=== PATIENT | female | born 1935 | race Caucasian/White ===

== ENCOUNTER 2016-06-30 09:07 | Inpatient (IN) ==
--- NOTE | 2016-06-30 09:43 | Emergency Department Note ---
Disposition Clinical Impression: Community acquired pneumonia, Weakness, Confusion, Hypokalemia Disposition: Admitted As Inpatient Referrals: Tae Pascal DO [Primary Care Provider] - Forms: ED Satisfaction Letter General Adult HPI - General Chief complaint: ED Shortness of Breath/Dyspnea Stated complaint: Lethargic/dehydrated/Nausea Time Seen by Provider: 06/30/16 09:42 Source: patient, family Limitations: no limitations - History of Present Illness HPI Narrative: 80-year-old female reports emergency department with her female relative. The patient usually lives at home. There is concern that the patient is becoming dehydrated, she has had some nausea and slight midepigastric discomfort. She has a history of reflux. There is no history of vomiting bloody material or bloody or black stool. She denies any chest pain or shortness of breath but has had a cough and a runny nose. There is no history of fall or injury no trouble walking talking hearing seeing or speaking and no weakness or numbness in the arms or legs or confusion. There is no history of headache neck stiffness rash or fever. The patient has felt generally weak since Tuesday. There is no history of back pain or urinary symptoms. She is not known to be diabetic and denies any heart problems. Essentially the patient feels weaker than usual, she has had upper respiratory symptoms and some slight midepigastric discomfort associated with nausea. Pain Scale: 0 - Related Data Allergies Allergy/AdvReac Type Severity Reaction Status Date / Time LILI Inhibitors Allergy Anaphylaxis Verified 06/30/16 09:17 All systems ED: reviewed and negative except as stated. Past Medical History - Past Medical History Medical history: Reports: GERD, hypertension Psychiatric history: Reports: no psych history - Social History Smoking Status: Never smoker Smokeless Tobacco Status: No Alcohol use: Reports: none Drug use: Reports: none Physical Exam - General Limitations: no limitations General appearance: alert, in no apparent distress, other (The patient is alert and follows commands properly, she is able to sit up on command without difficulty and does not get dizzy with this maneuver. There is no hesitation with following commands or sitting upright on the bed.) - Head Head exam: atraumatic, normocephalic, normal inspection - Eye Eye exam: Present: normal appearance, PERRL, EOMI - ENT ENT exam: normal exam, normal oropharynx, mucous membranes moist, TM's normal bilaterally, normal external ear exam - Neck Neck exam: Present: normal inspection, full ROM, trachea midline - Chest Chest inspection: Present: symmetric chest wall rise. Absent: tenderness - Respiratory Respiratory exam: Present: normal lung sounds bilaterally. Absent: respiratory distress - Cardiovascular Cardiovascular exam: Present: regular rate, normal rhythm, normal heart sounds - Abdominal Exam Abdominal exam: Present: soft, Non-Tender. Absent: tenderness, distention, guarding, rebound, rigidity, pulsatile mass - Extremities Exam Extremities exam: Present: normal inspection, full ROM, normal capillary refill. Absent: tenderness, pedal edema, joint swelling, calf tenderness - Expanded Lower Extremity Exam Lower leg exam: Absent: Homans' sign Neurovascular/Tendon exam: Absent: pulse deficit, motor deficit, sensory deficit , tendon deficit, extremity cold to touch - Back Exam Back exam: Present: normal inspection, full ROM. Absent: tenderness, CVA tenderness (R), CVA tenderness (L), vertebral tenderness - Neurological Exam Neurological exam: Present: alert, oriented X3, CN II-XII intact. Absent: motor sensory deficit, reflexes normal - Psychiatric Psychiatric exam: Present: normal affect, normal mood - Skin Skin exam: Present: warm, dry, intact, normal color. Absent: rash, cyanosis, diaphoresis, erythema, pallor, mottled Course Vital Signs Temperature 98.8 F 06/30/16 09:12 Pulse Rate 80 06/30/16 09:12 Respiratory Rate 18 06/30/16 09:12 Blood Pressure 134/80 06/30/16 09:12 O2 Sat by Pulse Oximetry 94 L 06/30/16 09:12 Temperature 98.8 F 06/30/16 09:12 Pulse Rate 70 06/30/16 10:33 Respiratory Rate 14 06/30/16 10:33 Blood Pressure 142/79 06/30/16 10:33 O2 Sat by Pulse Oximetry 94 L 06/30/16 10:33 Oxygen Delivery Oxygen Delivery Room Air Medical Decision Making - MDM Narrative Medical decision making narrative: The patient's caregiver came to the ED, her granddaughter, she reports the patient is unable to get out of bed, not taking foods or fluids, she has been somewhat confused as well. The patient was taken to urgent care last night and treated, she has not improved. We noticed the patient's oxygen levels in the 92 % range, she was given oxygen in the ED. Her potassium is 2.6 IV potassium with fluids were ordered. The patient appears to have pneumonia. She has an elevated CRP and white count she is frail and elderly. Based on the patient's history of poor ambulation, decreased by mouth intake, hypokalemia, pneumonitis , decreased oxygen saturations, frail elderly state, and apparent reports of confusion, I thought the patient would be best admitted to the hospital. The family does not feel the patient is well enough to go home. The patient is currently stable. I reviewed the case with the hospitalist on-call. - Lab Data Lab results reviewed: Yes I reviewed the patient's lab results. Result diagrams: 06/30/16 10:33 06/30/16 10:33 Lab Results 06/30/16 06/30/16 06/30/16 Range/Units 10:33 10:33 10:33 WBC 19.8 H (4.3-11.1) K/mcL RBC 4.33 (3.82-4.97) M/mcL Hgb 11.9 (11.5-15.4) g/dL Hct 34.6 L (35.3-44.9) % MCV 79.9 L (83.0-100.0) fL MCH 27.5 L (28.0-33.3) pg MCHC 34.4 (31.6-35.5) g/dL RDW 14.0 (11.5-14.5) % Plt Count 318 (140-400) K/mcL MPV 8.1 L (9.4-12.4) fL Immature Gran % 0.6 (0-4) % Seg Neutrophils % 91.5 % Lymphocytes % 1.9 % Monocytes % 5.9 % Eosinophils % 0.0 % Basophils % 0.1 % Neutrophils # 18.2 H (1.6-8.9) K/mcL Lymphocytes # 0.4 L (0.6-4.6) K/mcL Monocytes # 1.2 (0.0-1.3) K/mcL Eosinophils # 0.0 (0.0-0.6) K/mcL Basophils # 0.0 (0.0-0.2) K/mcL Sodium 124 L (136-145) mEq/L Potassium 2.6 L (3.5-4.5) mEq/L Chloride 83 L (98-109) mEq/L Carbon Dioxide 23 (19-29) mEq/L BUN 13 (7-20) mg/dL Creatinine 0.73 (0.57-1.11) mg/dL Est GFR ( Amer) > 60 (> 60) Est GFR (Non-Af Amer) > 60 (> 60) BUN/Creatinine Ratio 18 (6-26) Glucose 150 H (70-99) mg/dL Calculated Osmolality 261 L (280-300) Lactic Acid 2.0 (0.5-2.2) mmol/L Calcium 9.0 (8.6-10.8) mg/dL Total Bilirubin (0.2-1.2) mg/dL Direct Bilirubin (0.0-0.5) mg/dL Indirect Bilirubin (0.0-1.2) mg/dL AST (5-34) Units/L ALT (0-55) Units/L Alkaline Phosphatase (38-126) Units/L Creatine Kinase 383 H (29-168) Units/L Troponin I (0-0.03) ng/mL C-Reactive Protein (Less than 5) mg/L Serum Total Protein (6.0-8.3) g/dL Albumin (3.5-5.0) g/dL Globulin (2.4-3.5) g/dL Albumin/Globulin Ratio (1.1-2.2) Lipase (8-78) Units/L Urine Color (Yellow) Urine Clarity (Clear) Urine pH (5.0-8.0) pH Units Ur Specific [place] (1.010-1.025) Urine Protein (Neg-Trace) mg/dL Urine Glucose (UA) (Normal) mg/dL Urine Ketones (Negative) mg/dL Urine Blood (Negative) Urine Nitrite (Negative) Urine Bilirubin (Negative) Urine Urobilinogen (Normal) mg/dL Ur Leukocyte Esterase (Negative) Urine Microscopic RBC (0-3) per hpf Urine Microscopic WBC (0-3) per hpf Ur Squamous Epith Cells (None-Few) per lpf Urine Bacteria (None-Few) per hpf Hyaline Casts (None-Few) per lpf Ur Culture Indicated? (NO) 06/30/16 06/30/16 06/30/16 Range/Units 10:33 10:33 11:10 WBC (4.3-11.1) K/mcL RBC (3.82-4.97) M/mcL Hgb (11.5-15.4) g/dL Hct (35.3-44.9) % MCV (83.0-100.0) fL MCH (28.0-33.3) pg MCHC (31.6-35.5) g/dL RDW (11.5-14.5) % Plt Count (140-400) K/mcL MPV (9.4-12.4) fL Immature Gran % (0-4) % Seg Neutrophils % % Lymphocytes % % Monocytes % % Eosinophils % % Basophils % % Neutrophils # (1.6-8.9) K/mcL Lymphocytes # (0.6-4.6) K/mcL Monocytes # (0.0-1.3) K/mcL Eosinophils # (0.0-0.6) K/mcL Basophils # (0.0-0.2) K/mcL Sodium (136-145) mEq/L Potassium (3.5-4.5) mEq/L Chloride (98-109) mEq/L Carbon Dioxide (19-29) mEq/L BUN (7-20) mg/dL Creatinine (0.57-1.11) mg/dL Est GFR ( Amer) (> 60) Est GFR (Non-Af Amer) (> 60) BUN/Creatinine Ratio (6-26) Glucose (70-99) mg/dL Calculated Osmolality (280-300) Lactic Acid (0.5-2.2) mmol/L Calcium (8.6-10.8) mg/dL Total Bilirubin 0.7 (0.2-1.2) mg/dL Direct Bilirubin 0.3 (0.0-0.5) mg/dL Indirect Bilirubin 0.4 (0.0-1.2) mg/dL AST 36 H (5-34) Units/L ALT 21 (0-55) Units/L Alkaline Phosphatase 152 H (38-126) Units/L Creatine Kinase (29-168) Units/L Troponin I 0.02 (0-0.03) ng/mL C-Reactive Protein 64 H (Less than 5) mg/L Serum Total Protein 7.7 (6.0-8.3) g/dL Albumin 4.0 (3.5-5.0) g/dL Globulin 3.7 H (2.4-3.5) g/dL Albumin/Globulin Ratio 1.1 (1.1-2.2) Lipase 23 (8-78) Units/L Urine Color Yellow (Yellow) Urine Clarity Cloudy A (Clear) Urine pH 6.5 (5.0-8.0) pH Units Ur Specific [place] 1.020 (1.010-1.025) Urine Protein 30 H (Neg-Trace) mg/dL Urine Glucose (UA) Normal (Normal) mg/dL Urine Ketones 40 H (Negative) mg/dL Urine Blood Negative (Negative) Urine Nitrite Negative (Negative) Urine Bilirubin Negative (Negative) Urine Urobilinogen Normal (Normal) mg/dL Ur Leukocyte Esterase Negative (Negative) Urine Microscopic RBC 0-3 (0-3) per hpf Urine Microscopic WBC 0-3 (0-3) per hpf Ur Squamous Epith Cells Many H (None-Few) per lpf Urine Bacteria Moderate H (None-Few) per hpf Hyaline Casts None Seen (None-Few) per lpf Ur Culture Indicated? NO (NO) - Radiology Data Radiology results reviewed: Yes I reviewed the patient's radiology results.
[2016-06-30 10:46] LABS: Basophils % 0.1 %; Hematocrit 34.6 % (35.3-44.9); Hemoglobin 11.9 g/dL (11.5-15.4); Immature Granulocytes % 0.6 % (0-4); Lymphocytes # 0.4 K/mcL (0.6-4.6); Lymphocytes % 1.9 %; Mean Corpuscular HGB Conc 34.4 g/dL (31.6-35.5); Mean Corpuscular Hemoglobin 27.5 pg (28.0-33.3); Mean Corpuscular Volume 79.9 fL (83.0-100.0); Mean Platelet Volume 8.1 fL (9.4-12.4); Monocytes # 1.2 K/mcL (0.0-1.3); Monocytes % 5.9 %; Neutrophils # 18.2 K/mcL (1.6-8.9); Platelet Count 318 K/mcL (140-400); Red Blood Count 4.33 M/mcL (3.82-4.97); Segmented Neutrophils % 91.5 %
[2016-06-30 11:03] LABS: Albumin/Globulin Ratio 1.1 (1.1-2.2); Bilirubin,Direct 0.3 mg/dL (0.0-0.5); Bilirubin,Indirect 0.4 mg/dL (0.0-1.2); Bilirubin,Total 0.7 mg/dL (0.2-1.2); Globulin 3.7 g/dL (2.4-3.5); Total Protein 7.7 g/dL (6.0-8.3)
[2016-06-30 11:04] LABS: BUN/Creatinine Ratio 18 (6-26); Blood Urea Nitrogen 13 mg/dL (7-20); Carbon Dioxide 23 mEq/L (19-29); Chloride 83 mEq/L (98-109); Creatine Kinase 383 Units/L (29-168); Glucose 150 mg/dL (70-99); Osmolality,Calculated 261 (280-300); Potassium 2.6 mEq/L (3.5-4.5); Sodium 124 mEq/L (136-145); eGFR For African Americans > 60 (> 60); eGFR For Non-African Americans > 60 (> 60)
[2016-06-30 11:20] LABS: Bilirubin,Urine Negative (Negative); Blood,Urine Negative (Negative); Clarity,Urine Cloudy (Clear); Color,Urine Yellow (Yellow); Glucose,Urine (UA) Normal (Normal); Ketones,Urine 40 mg/dL (Negative); Leukocyte Esterase,Urine Negative (Negative); Nitrite,Urine Negative (Negative); PH,Urine 6.5 pH Units (5.0-8.0); Protein,Urine 30 mg/dL (Neg-Trace); Urobilinogen,Urine Normal (Normal)
[2016-06-30 11:23] LABS: Bacteria,Urine Moderate per hpf (None-Few); Hyaline Casts,Urine None Seen per lpf (None-Few); RBC,Urine 0-3 per hpf (0-3); Squamous Epithelial Cell,Urine Many per lpf (None-Few); WBC,Urine 0-3 per hpf (0-3)
[2016-06-30] MEDS ORDERED: 0.9 % Sodium Chloride 1,000 ML IVC ONE (12:04)
[2016-06-30] MEDS: Levofloxacin 750 MG/150 ML 750 MG/150 ML BAG IVPB SCH (12:18)
[2016-06-30] MEDS ORDERED: Naloxone 0.4 MG/ML INJ IVP PRN (12:30)
[2016-06-30 12:43] LABS: Magnesium 1.5 mg/dL (1.6-2.6)
[2016-06-30] MEDS ORDERED: Magnesium Sulfate 1 GM in D5% in Water 100 ML IVPB STA (13:32)
[2016-06-30] MEDS ORDERED: 0.9 % Sodium Chloride 1,000 ML IVC SCH (13:45)
--- NOTE | 2016-06-30 14:09 | Internal Med History&Physical ---
Date of Encounter: 06/30/16 Time of Encounter: 14:05 Assessment and Plan (1) Acute metabolic encephalopathy Current visit: Yes Status: Acute Secondary to acute hyponatremia and pneumonia. Family reports the patient is very slow to answer questions but that is her baseline area. She is fully independent and lives with her granddaughter. Improved after IV fluids. Treat underlying etiology. (2) Dehydration Current visit: Yes Status: Acute Secondary to poor oral intake and infection. Continue gentle hydration with IV fluids. (3) Community acquired pneumonia Current visit: Yes Status: Acute Chest x-ray revealed left lower airspace opacity. Continue IV Levaquin. (4) Acute hyponatremia Current visit: Yes Status: Acute NA on Admission was 124. Received 1 L of IV fluids in the ER. Continue normal saline at a slow rate to avoid rapid correction. Repeat BMP at 6 PM. (5) Hypokalemia Current visit: Yes Status: Acute K 2.6. EKG shows SR, no acute changes. replete (6) Weakness Current visit: Yes Status: Acute Multifactorial from dehydration and infection. Plan as above. (7) HTN (hypertension) Current visit: No Status: Chronic Blood pressure well controlled without medications. Qualifiers: Hypertension type: essential hypertension Qualified Code(s): I10 - Essential (primary) hypertension (8) GERD (gastroesophageal reflux disease) Current visit: No Status: Chronic Patient has history of severe GERD. She takes Prevacid at home. Given her poor oral intake, I will start Protonix IV. Qualifiers: Esophagitis presence: esophagitis presence not specified Qualified Code(s) : K21.9 - Gastro-esophageal reflux disease without esophagitis (9) Cognitive changes Current visit: No Status: Chronic Family reports the patient is very slow to answer questions but that is her baseline area. She is fully independent and lives with her granddaughter. Internal Medicine - H&P: HPI Chief complaint: Generalized weakness and productive cough for the past 4 days. Admitted From: Home Plans for Post Hospital Care: Home History of present illness: Ms. Long is a 80 year old female with past medical history of GERD and HTN who is mildly confused but able to answer all questions. Her granddaughter lives with her and is at bedside. Last Tuesday, she developed sore throat followed by productive cough of yellowish sputum and chills. No fever. No chest pain. No hemoptysis. no diarrhea. no urinary complaints. no bleeding. no abdominal pain. Granddaughter and daughter has Strep A pharyngitis 2 weeks ago. Our ED, patient was very confused and sleepy. She received 1 L of IV fluid and was started on IV potassium. Past Med Surg Social Fam HX - Past Medical History Medical history: GERD, hypertension Psychiatric history: no psych history - Past Surgical History Surgical History: hip replacement, hysterectomy - Social History Smoking Status: Never smoker Smokeless Tobacco Status: No Alcohol use: none Drug use: none - Family History Mother Hx Family Endocrine Disorder: Yes (dm) Internal Medicine - H&P: Meds Allergies LILI Inhibitors Allergy (Verified 06/30/16 09:17) Anaphylaxis All Systems PM: A 10-system review of systems was performed and is negative for pertinent findings except as documented above in the HPI. - Constitutional Vitals: Temp Pulse Resp BP Pulse Ox 98.8 F 71 18 139/84 93 L 06/30/16 09:12 06/30/16 12:12 06/30/16 12:43 06/30/16 12:43 06/30/16 12:12 General appearance: Present: cooperative, A&O X 3, pleasant, no acute distress, answers questions appropriately - Eye Eye exam: Present: PERRL. Absent: sclera anicteric - ENT ENT exam: Present: mucous membranes dry - Neck Neck exam general surgery: Present: supple, trachea midline. Absent: lymphadenopathy - Respiratory Respiratory exam: Present: rales (at left lung base) - Cardiovascular Cardiovascular exam: Present: RRR - GI/Abdominal GI/Abdominal exam: Present: normal bowel sounds. Absent: distended, soft, tenderness - Extremities Exam Extremities exam: Present: radial pulses palpable and symetrical. Absent: joint swelling, pedal edema, tenderness - Neurological Exam Neurological exam: Present: alert, no focal deficits. Absent: facial droop, speech deficit - Skin Skin exam: Present: dry, normal color. Absent: erythema, rash Internal Med - H&P Results - Labs CBC & Chem 7: 06/30/16 10:33 06/30/16 10:33
[2016-06-30] MEDS: 0.9 % Sodium Chloride 1,000 ML IVC SCH (14:45)
[2016-06-30] MEDS: Pantoprazole 40 MG VIAL IVP SCH (14:59)
[2016-06-30] MEDS: Acetaminophen 325 MG TABLET PO PRN (15:58)
[2016-06-30] MEDS: Ondansetron 4 MG/2 ML VIAL IVP PRN (15:58)
[2016-06-30] MEDS ORDERED: Potassium Chloride 40 MEQ, Lidocaine 1% 2 ML in D5% in Water 500 ML IVPB ONE (16:00)
[2016-06-30 19:34] LABS: BUN/Creatinine Ratio 17 (6-26); Blood Urea Nitrogen 12 mg/dL (7-20); Calcium 8.2 mg/dL (8.6-10.8); Carbon Dioxide 21 mEq/L (19-29); Chloride 88 mEq/L (98-109); Glucose 155 mg/dL (70-99); Osmolality,Calculated 257 (280-300); Potassium 3.3 mEq/L (3.5-4.5); Sodium 122 mEq/L (136-145); eGFR For African Americans > 60 (> 60); eGFR For Non-African Americans > 60 (> 60)
[2016-07-01] MEDS: Ondansetron 4 MG/2 ML VIAL IVP PRN ×3 (00:57→20:22)
[2016-07-01 05:02] LABS: Basophils % 0.1 %; Hematocrit 28.6 % (35.3-44.9); Immature Granulocytes % 0.7 % (0-4); Lymphocytes # 0.6 K/mcL (0.6-4.6); Lymphocytes % 4.1 %; Mean Corpuscular HGB Conc 33.2 g/dL (31.6-35.5); Mean Corpuscular Hemoglobin 26.9 pg (28.0-33.3); Mean Platelet Volume 8.2 fL (9.4-12.4); Monocytes # 0.7 K/mcL (0.0-1.3); Monocytes % 5.2 %; Neutrophils # 12.4 K/mcL (1.6-8.9); Platelet Count 245 K/mcL (140-400); Red Blood Count 3.53 M/mcL (3.82-4.97); Red Cell Distribution Width 14.5 % (11.5-14.5); Segmented Neutrophils % 89.9 %
[2016-07-01 05:03] LABS: Hemoglobin 9.5 g/dL (11.5-15.4)
[2016-07-01 05:18] LABS: BUN/Creatinine Ratio 16 (6-26); Blood Urea Nitrogen 10 mg/dL (7-20); Carbon Dioxide 23 mEq/L (19-29); Chloride 91 mEq/L (98-109); Glucose 122 mg/dL (70-99); Magnesium 1.5 mg/dL (1.6-2.6); Osmolality,Calculated 258 (280-300); Phosphorous 2.1 mg/dL (2.3-4.7); Potassium 2.6 mEq/L (3.5-4.5); Sodium 124 mEq/L (136-145); eGFR For African Americans > 60 (> 60); eGFR For Non-African Americans > 60 (> 60)
[2016-07-01] MEDS ORDERED: Potassium Chloride 40 MEQ, Lidocaine 1% 2 ML in D5% in Water 500 ML IVPB STA (06:01)
[2016-07-01] MEDS ORDERED: Potassium Chloride Elixir 20 MEQ/15 ML UDC PO ONE (06:02)
[2016-07-01] MEDS: Pantoprazole 40 MG VIAL IVP SCH (09:38)
[2016-07-01] MEDS: Levofloxacin 750 MG/150 ML 750 MG/150 ML BAG IVPB SCH (09:39)
[2016-07-01] MEDS: 0.9 % Sodium Chloride 1,000 ML IVC SCH (09:43)
--- NOTE | 2016-07-01 09:52 | Internal Med Progress Note ---
<Rod Peña - Last Filed: 07/01/16 16:50> Date of Encounter: 07/01/16 Time of Encounter: 09:52 - Assessment and plan (1) Community acquired pneumonia Current Visit: Yes Status: Acute Assessment and plan: Chest x-ray and symptoms correlate with pneumonia picture, con't monotherapy with levaquin IV, urine legionella and pneumococcal antigens negative. (2) Hyponatremia Current Visit: Yes Status: Acute Assessment and plan: Pt is euvolemic, low serum osmolality, with concurrent pneumonia, SIADH can be a consideration, not much of improvement with NS IV, will stop it and will try fluid restriction, recheck in AM. (3) Hypokalemia Current Visit: Yes Status: Acute Assessment and plan: Replaced, log mag replaced as well. Recheck in AM. (4) Hypomagnesemia Current Visit: Yes Status: Acute Assessment and plan: Replaced, recheck in AM. (5) Weakness Current Visit: Yes Status: Acute Assessment and plan: PT/OT to evaluate him. (6) DVT prophylaxis Current Visit: Yes Status: Acute Assessment and plan: Heparin SQ. - Subjective Interval history: Pt seen and examined, states that he does noticed productive cough recently, feels better that yesterday. - Constitutional Vitals: Temp Pulse Resp BP Pulse Ox 98.4 F 82 18 135/85 93 L 07/01/16 07:11 07/01/16 07:11 07/01/16 07:11 07/01/16 07:11 07/01/16 07:11 General appearance: Present: cooperative, A&O X 3, pleasant, no acute distress, answers questions appropriately - Head Head exam: Present: atraumatic, normocephalic - Eye Eye exam: Present: PERRL, conjuntiva pink, sclera anicteric Pupils: Present: PERRL - Neck Neck exam general surgery: Present: supple, trachea midline. Absent: lymphadenopathy - Respiratory Respiratory exam: Present: rhonchi (at base b/l). Absent: accessory muscle use , rales, wheezes - Cardiovascular Cardiovascular exam: Present: RRR, +S1, +S2. Absent: diastolic murmur, gallop, rubs, systolic murmur - GI/Abdominal GI/Abdominal exam: Present: normal bowel sounds, soft, no peritoneal signs. Absent: distended, tenderness - Extremities Exam Extremities exam: Present: warm, radial pulses palpable and symetrical. Absent : calf tenderness, cyanotic, pedal edema - Neurological Exam Neurological exam: Present: CN II-XII intact, oriented X3, no focal deficits. Absent: pronater drift, facial droop, speech deficit - Skin Skin exam: Present: dry, intact Internal Medicine: Result - Labs CBC & Chem 7: 07/01/16 04:50 07/01/16 12:17 Labs: Short CBC 07/01/16 Range/Units 04:50 WBC 13.8 H (4.3-11.1) K/mcL Hgb 9.5 L D (11.5-15.4) g/dL Hct 28.6 L (35.3-44.9) % Plt Count 245 (140-400) K/mcL Neutrophils # 12.4 H (1.6-8.9) K/mcL BMP 06/30/16 07/01/16 19:10 04:50 Sodium 122 L 124 L Potassium 3.3 L 2.6 L Chloride 88 L 91 L Carbon Dioxide 21 23 BUN 12 10 Creatinine 0.71 0.61 Glucose 155 H 122 H Calcium 8.2 L 8.0 L Consult Discharge Plan - Plan Referrals: Tae Pascal DO [Primary Care Provider] - 07/07/16 9:30 am <James Hardy - Last Filed: 07/01/16 17:25> Date of Encounter: 07/01/16 - Constitutional Vitals: Temp Pulse Resp BP Pulse Ox 98.3 F 76 16 148/80 93 L 07/01/16 16:05 07/01/16 16:05 07/01/16 16:05 07/01/16 16:05 07/01/16 16:05 Internal Medicine: Result - Labs CBC & Chem 7: 07/01/16 04:50 07/01/16 12:17 Labs: Short CBC 07/01/16 Range/Units 04:50 WBC 13.8 H (4.3-11.1) K/mcL Hgb 9.5 L D (11.5-15.4) g/dL Hct 28.6 L (35.3-44.9) % Plt Count 245 (140-400) K/mcL Neutrophils # 12.4 H (1.6-8.9) K/mcL BMP 06/30/16 07/01/16 07/01/16 19:10 04:50 12:17 Sodium 122 L 124 L 122 L Potassium 3.3 L 2.6 L 3.6 D Chloride 88 L 91 L 92 L Carbon Dioxide 21 23 20 BUN 12 10 9 Creatinine 0.71 0.61 0.60 Glucose 155 H 122 H 116 H Calcium 8.2 L 8.0 L 8.1 L 07/01/16 12:17 Sodium Potassium 3.6 Chloride Carbon Dioxide BUN Creatinine Glucose Calcium - Attending Attestation I examined this patient and my medical decision-making was reviewed with the RECRUITMENT DIRECTOR/PA/Advanced Practice Nurse/Resident Physician. I agree with the documented findings, disposition and treatment plan as described except to the extent set forth below. Agree with Dr. Chaudhari note. PNA with multiple electrolyte imbalances. Likely SIADH, fluid restrtion. D/C ivfluids. Will supplement electrolytes, continue with antibiotics for PNA. D/W patient and her family.
--- NOTE | 2016-07-01 11:22 | Electrocardiograph Report ---
[facility] Test Date: 2016-06-30 Pat Name: Gena Long Department: 104 Room: 3A33 Gender: F Broom Maker: : [id number] Requested By: Duarte Steele Order Number: [id number] Reading MD: Ayden Horton MD Measurements Intervals [place] Rate: 74 P: 91 MD: 172 QRS: -58 QRSD: 154 T: -31 QT: 378 QTc: 405 Interpretive Statements SINUS RHYTHM RIGHT BUNDLE BRANCH BLOCK LEFT ANTERIOR FASCICULAR BLOCK Electronically Signed On 07-01-2016 11:20:48 EST by Ayden Horton MD
[2016-07-01] MEDS: Magnesium Oxide 400 MG TABLET PO SCH ×2 (12:24→20:12)
[2016-07-01 12:39] LABS: BUN/Creatinine Ratio 15 (6-26); Blood Urea Nitrogen 9 mg/dL (7-20); Calcium 8.1 mg/dL (8.6-10.8); Carbon Dioxide 20 mEq/L (19-29); Chloride 92 mEq/L (98-109); Glucose 116 mg/dL (70-99); Osmolality,Calculated 254 (280-300); Potassium 3.6 mEq/L (3.5-4.5); Sodium 122 mEq/L (136-145); eGFR For African Americans > 60 (> 60); eGFR For Non-African Americans > 60 (> 60)
[2016-07-01] MEDS: *HR* Heparin 5,000 UNIT/ML VIAL SQ SCH (18:26)
[2016-07-01] MEDS: Acetaminophen 325 MG TABLET PO PRN (20:12)
[2016-07-02 05:22] LABS: Basophils % 0.3 %; Hemoglobin 9.9 g/dL (11.5-15.4); Immature Granulocytes % 0.9 % (0-4); Lymphocytes # 1.1 K/mcL (0.6-4.6); Lymphocytes % 13.9 %; Mean Corpuscular Volume 81.7 fL (83.0-100.0); Mean Platelet Volume 8.6 fL (9.4-12.4); Monocytes # 0.7 K/mcL (0.0-1.3); Monocytes % 8.4 %; Platelet Count 259 K/mcL (140-400); Red Blood Count 3.67 M/mcL (3.82-4.97); Red Cell Distribution Width 14.6 % (11.5-14.5); Segmented Neutrophils % 76.5 %
[2016-07-02 05:48] LABS: BUN/Creatinine Ratio 12 (6-26); Blood Urea Nitrogen 7 mg/dL (7-20); Calcium 8.2 mg/dL (8.6-10.8); Carbon Dioxide 23 mEq/L (19-29); Chloride 94 mEq/L (98-109); Glucose 113 mg/dL (70-99); Magnesium 1.5 mg/dL (1.6-2.6); Osmolality,Calculated 263 (280-300); Potassium 2.8 mEq/L (3.5-4.5); Sodium 127 mEq/L (136-145); eGFR For African Americans > 60 (> 60); eGFR For Non-African Americans > 60 (> 60)
[2016-07-02] MEDS: *HR* Heparin 5,000 UNIT/ML VIAL SQ SCH ×2 (06:16→18:10)
[2016-07-02] MEDS: Magnesium Oxide 400 MG TABLET PO SCH ×2 (08:40→20:31)
[2016-07-02] MEDS: Levofloxacin 750 MG/150 ML 750 MG/150 ML BAG IVPB SCH (08:41)
[2016-07-02] MEDS: Pantoprazole 40 MG VIAL IVP SCH (08:41)
[2016-07-02] MEDS ORDERED: Magnesium Sulfate 2 GM in D5% in Water 100 ML IVPB ONE (10:17)
--- NOTE | 2016-07-02 10:19 | Internal Med Progress Note ---
<Rod Peña - Last Filed: 07/02/16 15:37> Date of Encounter: 07/02/16 Time of Encounter: 10:19 - Assessment and plan (1) Community acquired pneumonia Current Visit: Yes Status: Acute Assessment and plan: Chest x-ray and symptoms correlate with pneumonia picture, con't monotherapy with levaquin IV, urine legionella and pneumococcal antigens negative. (2) Hyponatremia Current Visit: Yes Status: Acute Assessment and plan: Pt is euvolemic, low serum osmolality, with concurrent pneumonia, SIADH can be a consideration, not much of improvement with NS IV, after stopping the fluid with fluid restriction, sodium counts improved. Recheck in AM. (3) Hypokalemia Current Visit: Yes Status: Acute Assessment and plan: Replaced, low mag replaced as well. Recheck in AM. (4) Hypomagnesemia Current Visit: Yes Status: Acute Assessment and plan: Replaced, recheck in AM. (5) Weakness Current Visit: Yes Status: Acute Assessment and plan: PT/OT recommended HH with pt/ot. (6) DVT prophylaxis Current Visit: Yes Status: Acute Assessment and plan: Heparin SQ. - Subjective Interval history: Pt seen and examined, states that she feels better than yesterday, still low appetite. - Constitutional Vitals: Temp Pulse Resp BP Pulse Ox 97.9 F 79 16 128/80 95 07/02/16 07:25 07/02/16 07:25 07/02/16 07:25 07/02/16 07:25 07/02/16 08:29 General appearance: Present: cooperative, A&O X 3, pleasant, no acute distress, answers questions appropriately - Head Head exam: Present: atraumatic, normocephalic - Eye Eye exam: Present: PERRL, conjuntiva pink, sclera anicteric Pupils: Present: PERRL - Neck Neck exam general surgery: Present: supple, trachea midline. Absent: lymphadenopathy - Respiratory Respiratory exam: Present: CTAB. Absent: accessory muscle use, rales, rhonchi, wheezes - Cardiovascular Cardiovascular exam: Present: RRR, +S1, +S2. Absent: diastolic murmur, gallop, rubs, systolic murmur - GI/Abdominal GI/Abdominal exam: Present: normal bowel sounds, soft, no peritoneal signs. Absent: distended, tenderness - Extremities Exam Extremities exam: Present: warm, radial pulses palpable and symetrical. Absent : calf tenderness, cyanotic, pedal edema - Neurological Exam Neurological exam: Present: CN II-XII intact, oriented X3, no focal deficits. Absent: pronater drift, facial droop, speech deficit - Skin Skin exam: Present: dry, intact Internal Medicine: Result - Labs CBC & Chem 7: 07/02/16 04:22 07/02/16 04:22 Labs: Short CBC 07/02/16 Range/Units 04:22 WBC 7.9 (4.3-11.1) K/mcL Hgb 9.9 L (11.5-15.4) g/dL Hct 30.0 L (35.3-44.9) % Plt Count 259 (140-400) K/mcL Neutrophils # 6.0 (1.6-8.9) K/mcL BMP 07/01/16 07/01/16 07/02/16 12:17 12:17 04:22 Sodium 122 L 127 L Potassium 3.6 D 3.6 2.8 L Chloride 92 L 94 L Carbon Dioxide 20 23 BUN 9 7 Creatinine 0.60 0.60 Glucose 116 H 113 H Calcium 8.1 L 8.2 L Consult Discharge Plan - Plan Referrals: Tae Pascal DO [Primary Care Provider] - 07/07/16 9:30 am <James Hardy - Last Filed: 07/02/16 15:58> Date of Encounter: 07/02/16 - Constitutional Vitals: Temp Pulse Resp BP Pulse Ox 97.7 F 77 18 124/78 95 07/02/16 15:07 07/02/16 15:07 07/02/16 15:07 07/02/16 15:07 07/02/16 15:07 Internal Medicine: Result - Labs CBC & Chem 7: 07/02/16 04:22 07/02/16 04:22 Labs: Short CBC 07/02/16 Range/Units 04:22 WBC 7.9 (4.3-11.1) K/mcL Hgb 9.9 L (11.5-15.4) g/dL Hct 30.0 L (35.3-44.9) % Plt Count 259 (140-400) K/mcL Neutrophils # 6.0 (1.6-8.9) K/mcL BMP 07/02/16 04:22 Sodium 127 L Potassium 2.8 L Chloride 94 L Carbon Dioxide 23 BUN 7 Creatinine 0.60 Glucose 113 H Calcium 8.2 L - Attending Attestation Mr. Long was seen and examined today. Family members were present during this encounter. The patient was initially septic with significant leukocytosis , source of infection is a community-acquired pneumonia, she also has multiple electrolyte discturbances: hyponatremia, hypokalemia, hypochloremia and hypomagnesemia. We will supplement electrolytes accordingly. We will advance diet. Negative testing for Legionella. Possible discharge tomorrow. Patient needs services at home. D/W patient and her family members in detail.
[2016-07-03 05:32] LABS: BUN/Creatinine Ratio 12 (6-26); Blood Urea Nitrogen 8 mg/dL (7-20); Calcium 8.3 mg/dL (8.6-10.8); Carbon Dioxide 24 mEq/L (19-29); Chloride 96 mEq/L (98-109); Glucose 109 mg/dL (70-99); Osmolality,Calculated 271 (280-300); Potassium 3.2 mEq/L (3.5-4.5); Sodium 131 mEq/L (136-145); eGFR For African Americans > 60 (> 60); eGFR For Non-African Americans > 60 (> 60)
[2016-07-03] MEDS: *HR* Heparin 5,000 UNIT/ML VIAL SQ SCH (06:00)
--- NOTE | 2016-07-03 07:53 | Internal Med Progress Note ---
Date of Encounter: 07/03/16 Time of Encounter: 07:53 - Assessment and plan (1) Community acquired pneumonia Current Visit: Yes Status: Acute (2) Hyponatremia Current Visit: Yes Status: Acute (3) Hypokalemia Current Visit: Yes Status: Acute (4) Hypomagnesemia Current Visit: Yes Status: Acute (5) Weakness Current Visit: Yes Status: Acute (6) DVT prophylaxis Current Visit: Yes Status: Acute - Subjective Interval history: Pt seen and examined, states that she feels better than yesterday, still low appetite. - Constitutional Vitals: Temp Pulse Resp BP Pulse Ox 98.1 F 66 16 133/84 96 07/03/16 06:59 07/03/16 06:59 07/03/16 06:59 07/03/16 06:59 07/03/16 07:00 General appearance: Present: cooperative, A&O X 3, pleasant, no acute distress, answers questions appropriately Internal Medicine: Result - Labs CBC & Chem 7: 07/02/16 04:22 07/03/16 04:19 Labs: BMP 07/03/16 04:19 Sodium 131 L Potassium 3.2 L Chloride 96 L Carbon Dioxide 24 BUN 8 Creatinine 0.65 Glucose 109 H Calcium 8.3 L Consult Discharge Plan - Plan Referrals: Tae Pascal DO [Primary Care Provider] - 07/07/16 9:30 am
[2016-07-03] MEDS: Pantoprazole 40 MG VIAL IVP SCH (08:07)
[2016-07-03] MEDS: Levofloxacin 750 MG/150 ML 750 MG/150 ML BAG IVPB SCH (08:07)
[2016-07-03] MEDS: Magnesium Oxide 400 MG TABLET PO SCH (08:07)
--- NOTE | 2016-07-03 14:51 | Discharge Summary ---
<Rod Peña - Last Filed: 07/03/16 14:45> Date of Encounter: 07/03/16 Time of Encounter: 14:47 - Discharge Diagnosis (1) Community acquired pneumonia Priority: Primary Status: Acute (2) Hyponatremia Priority: Secondary Status: Acute (3) Hypokalemia Priority: Secondary Status: Acute (4) Hypomagnesemia Priority: Secondary Status: Acute (5) Weakness Priority: Secondary Status: Acute (6) DVT prophylaxis Priority: Secondary Status: Acute - Discharge Medications Prescriptions: Levofloxacin [Levaquin] 750 mg PO DAILY 5 Days Magnesium Oxide [Mag-Ox] 400 mg PO BID #10 tablet Home Medications: Amlodipine Besylate 10 mg PO DAILY 06/30/16 [History] Lansoprazole [Prevacid] 30 mg PO DAILY 06/30/16 [History] Meloxicam [Mobic] 15 mg PO DAILY 06/30/16 [History] Potassium Chloride [Klor-Con 10] 10 meq PO BID 06/30/16 [History] Triamterene/HCTZ 37.5/25mg [Dyazide] 1 tab PO DAILY 06/30/16 [History] Levofloxacin [Levaquin] 750 mg PO DAILY 5 Days 07/03/16 [Rx] Magnesium Oxide [Mag-Ox] 400 mg PO BID #10 tablet 07/03/16 [Rx] Allergies/Adverse Reactions: Allergies LILI Inhibitors Allergy (Verified 06/30/16 09:17) Anaphylaxis Date of admission: 07/02/16 16:03 Primary care physician: Tae Pascal, Discharging clinician: Rod Peña Anticipated date of discharge: 07/03/16 - Patient Status Disposition: Home Health Service Condition: Good Functional capacity at discharge: uses cane/walker (fall precaution and up with assistance) Overall status at discharge: patient is progressing back to baseline - Discharge Instructions Follow Up With: Tae Pascal DO [Primary Care Provider] - 07/07/16 9:30 am (F/u with PCP in a week for hospital d/c f/u, f/u on pneumonia, electrolytes such as potassium, sodium and magnesium level, go over home meds.) - Diet and Activity Activity: resume usual activities as tolerated Diet: low fat, low cholesterol Hospital course: Ms. Long is a 80 year old female with hx of HTN and GERD, brought to the ER for cc of productive cough and sore throat, slight decrease in mentation, with clinical presentation and chest x-ray findings, she was admitted for community acquired pneumonia, she also had electrolyte imbalance with sodium, potassium and magnesium, her sodium improved with fluid restriction possibly 2/2 SIADH from pneumonia, magnesium and potassium were supplemented, PT/OT saw the pt and recommended home health, with IV abx of levaquin, pt's condition improved and therefore she will be d/c to home with HH in a stable condition today. - Time Spent with Patient Total time spent providing and/or coordinating discharge services: - Constitutional Vitals: Temp Pulse Resp BP Pulse Ox 97.9 F 64 16 137/80 94 L 07/03/16 10:32 07/03/16 10:32 07/03/16 10:32 07/03/16 10:32 07/03/16 10:32 General appearance: Present: cooperative, A&O X 3, pleasant, no acute distress, answers questions appropriately - Head Head exam: Present: atraumatic, normocephalic - Eye Eye exam: Present: PERRL, conjuntiva pink, sclera anicteric Pupils: Present: PERRL - Neck Neck exam general surgery: Present: supple, trachea midline. Absent: lymphadenopathy - Respiratory Respiratory exam: Present: CTAB. Absent: accessory muscle use, rales, rhonchi, wheezes - Cardiovascular Cardiovascular exam: Present: RRR, +S1, +S2. Absent: diastolic murmur, gallop, rubs, systolic murmur - GI/Abdominal GI/Abdominal exam: Present: normal bowel sounds, soft, no peritoneal signs. Absent: distended, tenderness - Extremities Exam Extremities exam: Present: warm, radial pulses palpable and symetrical. Absent : calf tenderness, cyanotic, pedal edema - Neurological Exam Neurological exam: Present: CN II-XII intact, oriented X3, no focal deficits. Absent: pronater drift, facial droop, speech deficit - Skin Skin exam: Present: dry, intact <James Hardy - Last Filed: 07/03/16 17:58> Date of Encounter: 07/03/16 Date of admission: 07/02/16 16:03 Primary care physician: Tae Pascal, Hospital course: Ms. Long is a 80 year old female - Time Spent with Patient Total time spent providing and/or coordinating discharge services: - Constitutional Vitals: Temp Pulse Resp BP Pulse Ox 98.2 F 68 17 142/89 94 L 07/03/16 15:16 07/03/16 15:16 07/03/16 15:16 07/03/16 15:16 07/03/16 15:16 - Attending Attestation I examined this patient and my medical decision-making was reviewed with the PUBLIC RELATIONS SENIOR ASSOCIATE/PA/Advanced Practice Nurse/Resident Physician. I agree with the documented findings, disposition and treatment plan as described except to the extent set forth below. Ms. Long was seen and examined, she is stable, afebrile, hypomagnesemia has been corrected. Potassium levels have improved compared to yesterday. We will discharge patient home today, she will continue with Levaquin, she expressed understanding.
[2016-07-03 15:22] VITALS: BP 142/89
--- NOTE | 2016-07-03 15:23 | Physician Discharge Referral ---
Home Health/Hosp Referral Info Transfer to: Home Health Attending Provider: Dr. Hardy Provider in Charge Post Discharge: PCP - Diagnosis (1) Community acquired pneumonia Priority: Primary Status: Acute (2) Hyponatremia Status: Acute (3) Hypokalemia Status: Acute (4) Hypomagnesemia Status: Acute (5) Weakness Status: Acute (6) DVT prophylaxis Status: Acute - Respiratory Orders None Smoking Cessation: Smoking cessation has been advised. For more information, call the [employer] Tobacco Quit Line at 0-247-AIJW-NOW. - Diet/Nutrition Diet/Nutrition Orders: Cardiac - Activity Activity Orders: Walker (fall precaution, up with assistance) - Services Needed Following services are medically necessary services: Home Health Aide, Physical Therapy, Occupational Therapy - Transfer Medications Prescriptions: Levofloxacin [Levaquin] 750 mg PO DAILY 5 Days Magnesium Oxide [Mag-Ox] 400 mg PO BID #10 tablet Home Medications: Amlodipine Besylate 10 mg PO DAILY 06/30/16 [History] Lansoprazole [Prevacid] 30 mg PO DAILY 06/30/16 [History] Meloxicam [Mobic] 15 mg PO DAILY 06/30/16 [History] Potassium Chloride [Klor-Con 10] 10 meq PO BID 06/30/16 [History] Triamterene/HCTZ 37.5/25mg [Dyazide] 1 tab PO DAILY 06/30/16 [History] Levofloxacin [Levaquin] 750 mg PO DAILY 5 Days 07/03/16 [Rx] Magnesium Oxide [Mag-Ox] 400 mg PO BID #10 tablet 07/03/16 [Rx] Allergies/Adverse Reactions: Allergies LILI Inhibitors Allergy (Verified 06/30/16 09:17) Anaphylaxis Certification: Further, I certify that my clinical findings support that this patient is homebound (i.e. absences from home require considerable and taxing effort and are for medical reasons or gnosticist services or infrequently or short duration when for other reasons) because: pt is having difficulty getting in/out of vehicle. Homebound Reason: Leaving home requires considerable and taxing effort due to condition Attestation: My signature below is to certify that this patient is under my care and that I, or nurse practitioner, or a physician's budget assistant working with me, has a face-to -face encounter with this patient.
== END 2016-07-03 16:15 | disposition home health service (06) | DRG 193 ==
LOC: EMEROO 09:07 → 3ANU 09:07
PROVIDERS: ADMIT Internal Medicine; ATTEND Internal Medicine

== ENCOUNTER 2017-02-28 07:32 | Inpatient (IN) ==
--- NOTE | 2017-02-27 21:14 | Discharge Summary ---
<Yanira Calderón - Last Filed: 02/27/17 21:17> Date of Encounter: 02/27/17 - Discharge Diagnosis (1) Status post total replacement of right shoulder Priority: Primary Status: Acute (2) Rotator cuff tear arthropathy of right shoulder Priority: Primary Status: Acute (3) Osteoporosis Priority: Secondary Status: Chronic Qualifiers: Osteoporosis type: unspecified Presence of current pathological fracture: unspecified Qualified Code(s): M81.0 - Age-related osteoporosis without current pathological fracture (4) HTN (hypertension) Priority: Secondary Status: Chronic Qualifiers: Hypertension type: essential hypertension Qualified Code(s): I10 - Essential (primary) hypertension - Discharge Medications Home Medications: Amlodipine Besylate 10 mg PO DAILY 06/30/16 [History] Meloxicam [Mobic] 15 mg PO DAILY 06/30/16 [History] Potassium Chloride [Klor-Con 10] 10 meq PO BID 06/30/16 [History] Triamterene/HCTZ 37.5/25mg [Dyazide] 1 tab PO DAILY 06/30/16 [History] Magnesium Oxide [Mag-Ox] 400 mg PO BID #10 tablet 07/03/16 [Rx] OxyCODONE Immed Rel [Roxicodone 5 MG] 5 mg PO Q6HR PRN #28 tablet 02/27/17 [Rx] B2/Vits A,C,E/Lut/Zeaxanth/Min [Icaps Tablet] 4 tab PO DAILY 02/28/17 [History] Omeprazole [PriLOSEC] 40 mg PO DAILY 02/28/17 [History] Allergies/Adverse Reactions: 3 Allergy/AdvReac Type Severity Reaction Status Date / Time LILI Inhibitors Allergy Anaphylaxis Verified 02/28/17 08:12 Primary care physician: Tae Pascal, - Patient Status Disposition: Home, Self-Care Condition: Good - Discharge Instructions Follow Up With: Tae Pascal DO [Primary Care Provider] - - Hospital Course Hospital course: Ms. Long is a 81 year old female - Time Spent with Patient Total time spent providing and/or coordinating discharge services: <Bucky Ochoa - Last Filed: 03/01/17 06:33> Date of Encounter: 03/01/17 Time of Encounter: 06:32 - Discharge Diagnosis (1) HTN (hypertension) Priority: Secondary Status: Chronic Qualifiers: Hypertension type: essential hypertension Qualified Code(s): I10 - Essential (primary) hypertension (2) GERD (gastroesophageal reflux disease) Priority: Secondary Status: Chronic Qualifiers: Esophagitis presence: esophagitis presence not specified Qualified Code(s) : K21.9 - Gastro-esophageal reflux disease without esophagitis (3) Rotator cuff tear arthropathy of right shoulder Priority: Primary Status: Chronic (4) Osteoporosis Priority: Secondary Status: Chronic Qualifiers: Osteoporosis type: unspecified Presence of current pathological fracture: unspecified Qualified Code(s): M81.0 - Age-related osteoporosis without current pathological fracture (5) Status post total replacement of right shoulder Priority: Primary Status: Acute (6) Acute blood loss anemia Priority: Primary Status: Acute Primary care physician: Tae Pascal, - Patient Status Functional capacity at discharge: uses cane/walker Overall status at discharge: patient is progressing back to baseline - Hospital Course Hospital course: Ms. Long is a 81 year old female Status post right total shoulder replacement The patient had an uneventful postoperative course. They received antibiotics and physical therapy and were discharged in stable condition. There will follow -up in the office in 2 weeks. - Time Spent with Patient Total time spent providing and/or coordinating discharge services:
[2017-02-28] MEDS ORDERED: CeFAZolin Pre 2,000 MG/100 ML 2,000 MG/100 ML BAG IVPB ONE (07:56)
--- NOTE | 2017-02-28 07:59 | History & Physical Report ---
Date of Encounter: 02/28/17 Time of Encounter: 07:58 24 Hour HP Update - Instructions Instructions: If the History and Physical is less than 30 days old and was completed prior to A.M. admission and or procedure and has NOT been updated on calendar day of procedure please complete this update prior to performing procedure. - Update Patient reports changes in Medical Condition: No Changes in examination, assessment, or condition: No Changes in Medication: No Preop tests/diagnostics Reviewed: Yes Surgery Remains Indicated: Yes Consent for Planned Operative Procedure(s) Verified: Yes - Pre-Operative Checklist Preoperative Checklist Indicated: No Prophylactic Antibiotic Ordered: Yes Is VTE Prophylaxis Indicated?: Yes
[2017-02-28] MEDS ORDERED: Ringers Solution, Lactated 1,000 ML IVC SCH ×2 (08:00→11:15)
--- NOTE | 2017-02-28 08:04 | Anesthesia Evaluation PreOp ---
Date of Encounter: 02/28/17 Time of Encounter: 07:59 - Past History Planned Operation: Right Total Shoulder Cardiac History: HTN Pulmonary History: Denies Any Significant HX MOSS GATHERER History: Denies Any Significant HX Other Medical History: GERD, Other (RA,) Anesthesia History: No Prior Anesthetic Complications, Past Anesthesia (Left THR , DAJUAN-BSO) : No Alcohol Use: none Drug use: none Medications and Allergies Amlodipine Besylate 10 mg PO DAILY 06/30/16 [History] Lansoprazole [Prevacid] 30 mg PO DAILY 06/30/16 [History] Meloxicam [Mobic] 15 mg PO DAILY 06/30/16 [History] Potassium Chloride [Klor-Con 10] 10 meq PO BID 06/30/16 [History] Triamterene/HCTZ 37.5/25mg [Dyazide] 1 tab PO DAILY 06/30/16 [History] Magnesium Oxide [Mag-Ox] 400 mg PO BID #10 tablet 07/03/16 [Rx] OxyCODONE Immed Rel [Roxicodone 5 MG] 5 mg PO Q6HR PRN #28 tablet 02/27/17 [Rx] 3 Allergy/AdvReac Type Severity Reaction Status Date / Time LILI Inhibitors Allergy Anaphylaxis Verified 02/22/17 14:47 - Meds/Allergy Pre-op Review Medications Reviewed: Yes Allergies Reviewed: Yes Beta Blockers on Current Med List: No Anesthesia Results - Labs Laboratory Tests 02/22/17 02/22/17 02/22/17 15:00 15:00 15:00 WBC 6.7 Hgb 11.5 Hct 37.5 Plt Count 402 H INR 0.9 Sodium 134 L Potassium 3.4 L Chloride 96 L Carbon Dioxide 26 BUN 18 Creatinine 0.83 - Imaging EKG: image reviewed (SINUS RHYTHM RIGHT BUNDLE BRANCH BLOCK LEFT ANTERIOR FASCICULAR BLOCK) Anesthesia Exam O2 Sat Height 1.52 m Height 1.52 m Weight 70.307 kg Weight 70.307 kg O2 Sat by Pulse Oximetry 98 Vital Signs Temp Pulse Resp BP Pulse Ox 98.1 F 78 18 128/76 98 02/28/17 08:00 02/28/17 08:00 02/28/17 08:00 02/28/17 08:00 02/28/17 08:00 Height: 5' Weight: 155# NPO (# of Hours): > 8 hrs Pain Scale: 0 Pain Scale Used: Numeric (1 - 10) - HEENT Pupil (Motor): Pupils equal, EOMI Mallampati: III Teeth: Normal Oral Opening: Greater than 3 - MOSS GATHERER LOC: Oriented MOSS GATHERER Motor: Normal RUE, Normal LUE, Normal RLE, Normal LLE, Normal Face MOSS GATHERER Sensory: Normal: RUE, LUE, RLE, LLE, Face - Cardiac Rhythm: Regular Murmur: None JVD: No Carotid Bruit: No - Pulmonary Breath Sounds: bilateral Clear Respiratory Effort: Symmetrical Anesthesia Assess/Plan ASA Score: 2 Modified Kaplan Scale for Level of Consciousness: Cooperative, oriented, and tranquil Anesthetic Plan: General, Regional (Right Brachial Plexus Block) Autologous Blood: Yes Monitoring Plan: Standard Monitors Recovery Plan: PACU
[2017-02-28] MEDS ORDERED: *HR* Propofol 200 MG/20 ML VIAL IVP ONE (08:07)
[2017-02-28] MEDS ORDERED: *HR* FentaNYL (PF) 100 MCG/2 ML VIAL ONE ×2 (08:07→08:43)
[2017-02-28] MEDS ORDERED: Lidocaine -MPF 2% 2 ML VIAL ONE ×2 (08:08→08:44)
[2017-02-28] MEDS ORDERED: Lidocaine -MPF 4% 5 ML AMPUL ONE (08:08)
[2017-02-28] MEDS ORDERED: *HR* Midazolam HCl 5 MG/5 ML VIAL IVP ONE (08:18)
[2017-02-28] MEDS ORDERED: ROPIVACAINE HCL/PF 0.5% 30 ML VIAL ONE ×2 (08:19→08:43)
[2017-02-28] MEDS ORDERED: Dexamethasone 4 MG/ML VIAL ONE (09:44)
[2017-02-28] MEDS ORDERED: Ondansetron 4 MG/2 ML VIAL ONE (09:44)
[2017-02-28] MEDS ORDERED: Naloxone 0.4 MG/ML INJ IVP PRN ×2 (09:48→11:15)
[2017-02-28] MEDS ORDERED: Ondansetron 4 MG/2 ML VIAL IVP ONE (09:48)
[2017-02-28] MEDS ORDERED: *HR* Labetalol 20 MG/4 ML SYRINGE IVP PRN (09:48)
[2017-02-28] MEDS ORDERED: *HR* Meperidine 25 MG/ML SYRINGE IVP PRN (09:48)
[2017-02-28] MEDS ORDERED: *HR* HYDROmorphone (PF) 1 MG/ML SYRINGE IVP PRN ×2 (09:48→11:15)
[2017-02-28] MEDS ORDERED: Albuterol 2.5 MG/3 ML NEBULIZER IH ONE (09:48)
--- NOTE | 2017-02-28 10:08 | Physician Discharge Referral ---
Home Health/Hosp Referral Info Transfer to: Home Health Provider in Charge Post Discharge: PCP - Diagnosis (1) Status post total replacement of right shoulder Priority: Primary Status: Acute (2) Rotator cuff tear arthropathy of right shoulder Priority: Primary Status: Chronic (3) Osteoporosis Priority: Secondary Status: Chronic (4) HTN (hypertension) Priority: Secondary Status: Chronic - Respiratory Orders None Smoking Cessation: Smoking cessation has been advised. For more information, call the [place] Tobacco Quit Line at 9-864-GTTC-NOW. - Dressing/Wound Care Type of Dressing/Treatments w/Frequency: Opsite placed. Keep dressing intact until first follow up appointment. If > 50% saturated,notify offfice, remove dressing and place appropriate dressing back in place. Dressing is water resistant, not water-proof. OK to shower, but do not get dressing wet. - Diet/Nutrition Diet/Nutrition Orders: Regular - Activity Activity Orders: Up ad luli, Ambulate - Services Needed Following services are medically necessary services: Nursing, Home Health Aide, Physical Therapy, Occupational Therapy Home Care Orders: PT/OT. NWB to affected upper extremity. Follow Shoulder Precautions x 6 weeks. Stay in brace during activity and at night. Remove brace during exercises. ICE and elevate extremity frequently throughout the day. Incentive spirometer 10x/hour - Transfer Medications Prescriptions: OxyCODONE Immed Rel [Roxicodone 5 MG] 5 mg PO Q6HR PRN #28 tablet PRN Reason: Pain Home Medications: Amlodipine Besylate 10 mg PO DAILY 06/30/16 [History] Meloxicam [Mobic] 15 mg PO DAILY 06/30/16 [History] Potassium Chloride [Klor-Con 10] 10 meq PO BID 06/30/16 [History] Triamterene/HCTZ 37.5/25mg [Dyazide] 1 tab PO DAILY 06/30/16 [History] Magnesium Oxide [Mag-Ox] 400 mg PO BID #10 tablet 07/03/16 [Rx] OxyCODONE Immed Rel [Roxicodone 5 MG] 5 mg PO Q6HR PRN #28 tablet 02/27/17 [Rx] B2/Vits A,C,E/Lut/Zeaxanth/Min [Icaps Tablet] 4 tab PO DAILY 02/28/17 [History] Omeprazole [PriLOSEC] 40 mg PO DAILY 02/28/17 [History] Allergies/Adverse Reactions: 3 Allergy/AdvReac Type Severity Reaction Status Date / Time LILI Inhibitors Allergy Anaphylaxis Verified 02/28/17 08:12 Certification: Further, I certify that my clinical findings support that this patient is homebound (i.e. absences from home require considerable and taxing effort and are for medical reasons or hoahaoism services or infrequently or short duration when for other reasons) because: Homebound Reason: Post-surgery restriction and or conditions limit ability to leave home Attestation: My signature below is to certify that this patient is under my care and that I, or nurse practitioner, or a physician's certified first assistant working with me, has a face-to -face encounter with this patient.
--- NOTE | 2017-02-28 10:20 | Anesthesia Procedures ---
Date of Encounter: 02/28/17 Time of Encounter: 09:15 Procedures: Anesthesia - Nerve Block Procedure Date: 02/28/17 Time: 09:15 Allergies/Adv Reactions: 3 Allergy/AdvReac Type Severity Reaction Status Date / Time LILI Inhibitors Allergy Anaphylaxis Verified 02/28/17 08:12 Pre-op Diagnosis: right rotator cuff arthropathy Surgical Procedure: right shoulder reverse ball Checklist: Correct Patient Identifier, Correct procedure, History checked Correct side: Right Blood Thinner: No Monitor Applied: EKG, BP, Pulse Oximetry Supplemental Oxygen via Nasal Cannula (L/min): 2 Sedation: Versed (mg): 2 Indication: Post Op Analgesia Pre-op Neuro Deficits: No Block Type: Supraclavicular Catheter placed: No Sterile Technique: Yes Ultrasound used: Yes Anatomy identified: Yes Visual spread of Local: Yes Neuro Stimulation: No Smooth Injection of Local: Yes Pain with Injection of Local: No Prep: Chlorhexadine Needle: 22 x 50 mm Stimuplex Local: Ropivacaine (0.5%) Volume (cc): 20 Number of Attempts: 1 Complications: None/effective block
--- NOTE | 2017-02-28 10:21 | Orthopedic Operative Note ---
Date of procedure: 02/28/17 Pre-op diagnosis: Right shoulder cuff tear arthropathy Post-op diagnosis: same Procedure: Procedure: Total Shoulder Replacment Reverse, right Estimated blood loss: 100 cc Hardware: Metal and polyethylene replacement: Arthrex large glenoid baseplate, 2 4.5 screws. 1 6.5 screw, 42+4 glenosphere, 8 humeral stem, poly insert 6 Exam Under anesthesia: Full motion and no stability Procedural Notes: Irreparable tear supraspinatus tendon grade 4 arthritic changes humeral head glenoid socket. Operative procedure: The patient was brought to the operating room and placed on the operating room table. After general anesthesia was administered the operative shoulder was examined. Findings were noted. The patient was placed in the modified beachchair position. All pressure points were padded appropriately. And the head was stabilized in the neutral position. The operative extremity was prepped and draped in the sterile surgical fashion. The patient received IV antibiotics prior to skin incision. A standard deltopectoral approach was made to the operative shoulder. Incision was made to the skin and subcutaneous tissue,hemo stasis was obtained with Bovie cautery. Using careful blunt dissection the cephalic vein was identified and mobilized medially. The deltopectoral interval was developed and the clavipectoral fascia was incised. The subscap was released off the lesser tuberosity and tagged with #2 FiberWire suture subscap was irreparable. The humerus was dislocated patient noted to have irreparable tear supraspinatus tendon, and the humeral cut was made along the anatomic neck. Patient with grade 4 arthritic changes humeral head .Anterior and posterior Bankart retractors were placed to expose the glenoid. The glenoid guide was seated and the centering hole was made. It was reamed with the appropriate reamer. The large baseplate was seated and secured with (2) 4.5 screws and one 6.5 screw. The baseplate was irrigated and dried and the 42+4 Glenosphere was seated and secured with the Lee taper. The Lee taper was tested and found to be secure the humerus was redislocated and prepared with the diaphyseal reamers, followed by a broaching process up to the appropriate size X in the patient's anatomic version. The metaphyseal reamer was then utilized. Trial reduction found the shoulder to be relocatable. Trial components were removed and the 8 stem was impacted in place in the patient's anatomic version. Trial reduction found the shoulder to be relocatable and stable with the appropriate 6 Rabia Trial component was removed and the real implant was seated and secured the shoulder was reduced. The shoulder had excellent motion and excellent stability and no evidence of dislocation. The deep tissue was irrigated with pulse irrigation. The shoulder was closed by the PA. The deltopectoral interval was closed with a running #1 PDS suture, subcutaneous tissue was irrigated and closed with 0 PDS suture, the skin was closed with Dermabond. The patient was placed in a sterile dressing, abduction brace and extubated. The patient was then transferred to the recovery room in stable condition. Anesthesia: DEJUAN Surgeon: Bucky Ochoa Coding And Reimbursement Specialist: Danielle Diallo Condition: stable Disposition: PACU
[2017-02-28] MEDS: Ringers Solution, Lactated 1,000 ML IVC SCH ×2 (10:28→10:29)
--- NOTE | 2017-02-28 11:02 | Anesthesia Evaluation Post Op ---
Date of Encounter: 02/28/17 Time of Encounter: 11:01 - Vital Signs Vital Signs: Vital Signs/O2 Sat/Glucose, Most Recent Temp Pulse Resp BP Pulse Ox 98.0 F 82 14 134/74 98 02/28/17 10:37 02/28/17 10:47 02/28/17 10:47 02/28/17 10:47 02/28/17 10:47 - Lungs Lungs: Clear Ascult./Percussion - Airway Airway: Non-obstructed - Cardiovascular Regular Rate - Mental Status Mental Status: Alert & Oriented, Answers Appropriately - Pain Pain Scale: 1 Pain Scale used: Numeric (1 - 10) - Nausea Vomiting Nausea Vomiting: Not Present - Hydration Hydration: NPO - Discharge PostOp Status: Transfer Patient to floor
[2017-02-28 11:05] LABS: Hematocrit 30.5 % (35.3-44.9)
[2017-02-28 11:06] LABS: Hemoglobin 9.7 g/dL (11.5-15.4)
[2017-02-28] MEDS ORDERED: *HR* OxyCODONE Immed Rel 5 MG TABLET PO PRN (11:15)
[2017-02-28] MEDS ORDERED: Temazepam 15 MG CAPSULE PO PRN (11:15)
[2017-02-28] MEDS ORDERED: MOM Conc 10 ML UD.LIQ PO PRN (11:15)
[2017-02-28] MEDS ORDERED: Ondansetron 4 MG/2 ML VIAL IVP PRN (11:15)
[2017-02-28] MEDS ORDERED: Sennosides 8.6 MG TABLET PO PRN (11:15)
[2017-02-28] MEDS ORDERED: FLUARIX QUAD 2017-18 36MOS UP/PF 0.5 ML SYRINGE IM ONE (11:32)
[2017-02-28] MEDS: amLODIPine 5 MG TABLET PO SCH (12:42)
[2017-02-28] MEDS: Multivit/Ca/Min/Fe/FA 1 TAB TABLET PO SCH (13:43)
[2017-02-28] MEDS: Magnesium Oxide 400 MG TABLET PO SCH ×2 (13:43→20:34)
[2017-02-28] MEDS: ceFAZolin 2,000 MG in D5% in Water 100 ML IVPB SCH (17:02)
[2017-02-28] MEDS: *HR* Enoxaparin 30 MG/0.3 ML SYRINGE SQ SCH (17:03)
[2017-02-28] MEDS ORDERED: *HR* Enoxaparin 30 MG/0.3 ML SYRINGE SQ SCH (18:00)
[2017-02-28] MEDS: *HR* OxyCODONE Immed Rel 5 MG TABLET PO PRN (20:36)
[2017-03-01] MEDS: ceFAZolin 2,000 MG in D5% in Water 100 ML IVPB SCH (00:18)
[2017-03-01] MEDS: *HR* Enoxaparin 30 MG/0.3 ML SYRINGE SQ SCH (06:19)
--- NOTE | 2017-03-01 06:33 | Orthopedics Progress Note ---
Date of Encounter: 03/01/17 Time of Encounter: 06:33 - Assessment and Plan (1) HTN (hypertension) Current Visit: No Status: Chronic Qualifiers: Hypertension type: essential hypertension Qualified Code(s): I10 - Essential (primary) hypertension (2) GERD (gastroesophageal reflux disease) Current Visit: No Status: Chronic Qualifiers: Esophagitis presence: esophagitis presence not specified Qualified Code(s) : K21.9 - Gastro-esophageal reflux disease without esophagitis (3) Rotator cuff tear arthropathy of right shoulder Current Visit: No Status: Chronic (4) Osteoporosis Current Visit: No Status: Chronic Qualifiers: Osteoporosis type: unspecified Presence of current pathological fracture: unspecified Qualified Code(s): M81.0 - Age-related osteoporosis without current pathological fracture (5) Status post total replacement of right shoulder Current Visit: No Status: Acute (6) Acute blood loss anemia Current Visit: Yes Status: Acute Subjective Interval history: Patient was seen this morning doing well without complaints. Afebrile vital signs stable. Operative extremity: Neurovascularly intact Dressing clean dry and intact Calves nontender Assessment and plan: Continue with postoperative care Hematocrit 30 discharged today Objective Vital signs: Vital Signs Temp Pulse Resp BP Pulse Ox 03/01/17 04:25 98.0 F 92 17 118/72 98 03/01/17 02:23 98.0 F 97 18 151/78 96 02/28/17 19:56 97.9 F 106 18 145/74 98 02/28/17 14:20 97.6 F 96 16 114/76 97 02/28/17 14:09 97.6 F 96 16 114/76 97 02/28/17 13:20 97.6 F 88 120/76 96 02/28/17 12:31 97.8 F 91 130/77 96 02/28/17 11:50 97.8 F 83 120/72 98 02/28/17 11:16 97.6 F 85 15 110/72 02/28/17 11:07 98.2 F 80 16 120/81 98 02/28/17 10:57 85 14 112/71 97 02/28/17 10:47 82 14 134/74 98 02/28/17 10:37 98.0 F 82 12 140/78 96 02/28/17 09:15 76 16 114/69 97 02/28/17 09:01 82 18 123/94 98 10/02/17 08:12 98.1 F 78 18 128/76 98 02/28/17 08:00 98.1 F 78 18 128/76 98 Intake and Output 02/28/17 02/28/17 03/01/17 15:59 23:59 07:59 Intake Total 1000 / 1000 550 / 550 400 / 400 Output Total 100 / 100 Balance 900 / 900 550 / 550 400 / 400 Intake: IV Fluids 1000 / 1000 100 / 100 Lactated Ringers 1,000 ML @ 25 1000 / 1000 mls/hr IVC .Q24H [facility] Rx#: [id number] Ancef 2,000 MG In Dextrose 5% 100 / 100 100 ML @ 200 mls/hr IVPB Q8HR [facility] Rx#:[id number] Oral 0 / 0 450 / 450 400 / 400 Output: Urine 0 / 0 Estimated Blood Loss 100 / 100 Other: # Voids 1 1 Weight 70.307 kg - Labs CBC & BMP: 02/28/17 10:54 Labs: Abnormal lab results Hgb 9.7 g/dL (11.5-15.4) L D 02/28/17 10:54 Hct 30.5 % (35.3-44.9) L 02/28/17 10:54 - VTE Documentation of Mechanical Device: Intermittent pneumatic compression device Consult Discharge Plan - Plan Referrals: Tae Pascal DO [Primary Care Provider] -
[2017-03-01 06:56] LABS: Hematocrit 28.1 % (35.3-44.9); Hemoglobin 8.8 g/dL (11.5-15.4)
[2017-03-01] MEDS: Multivit/Ca/Min/Fe/FA 1 TAB TABLET PO SCH (08:48)
[2017-03-01] MEDS: amLODIPine 5 MG TABLET PO SCH (08:48)
[2017-03-01] MEDS: Magnesium Oxide 400 MG TABLET PO SCH (08:49)
[2017-03-01] MEDS: *HR* OxyCODONE Immed Rel 5 MG TABLET PO PRN (08:56)
[2017-03-01] MEDS ORDERED: FLUARIX QUAD 2017-18 36MOS UP/PF 0.5 ML SYRINGE IM ONE (10:00)
[2017-03-01 11:04] VITALS: BP 94/58
--- NOTE | 2017-03-01 11:38 | Event Note ---
Date of Encounter: 03/01/17 Time of Encounter: 11:37 Total Shoulder Replacment Reverse, right 02/28/17 PCR POD#.1 Comorbidities: HTN, Osteoporosis Labs: 03/01 - 8.01/23 - Asymptomatic Patient seen at bedside. Pain control: adequate Participating in PT. All questions and concerns addressed. Educated on use of incentive spirometer, ambulation, and hydration. Patient educated on post-operative restrictions and care. Addressed: D/C plan: - home 03/01
== END 2017-03-01 15:00 | disposition home or self-care (01) | DRG 483 ==
LOC: SAMDAY 07:32 → 3NENU 11:08
PROVIDERS: ADMIT Orthopaedic Surgery; ATTEND Orthopaedic Surgery